=== PATIENT | female | born 1950 | race Caucasian/White ===

== ENCOUNTER → 2016-06-21 | Outpatient (CLI) | payer BC ==
[2016-06-21 11:11] LABS: CH 29.4; CHCM 32.3; HCT 39.7 % (34.0-46.0); HDW 2.35; MCHC 32.8 g/dL (31.0-37.0); MCV 91.4 fL (80.0-100.0); Mean Platelet Volume 8.7; RBC 4.35 m/uL (3.80-5.40); RDW 13.5 % (11.5-15.5); WBC 5.5 k/uL (3.8-10.6)
[2016-06-21 11:15] LABS: Partial Thromboplastin Time 25.1 sec (22.0-30.0); Prothrombin Time 10.6 sec (9.0-12.0)
[2016-06-21 11:21] LABS: ALT 31 U/L (9-52); AST 27 U/L (14-36); Alkaline Phosphatase 121 U/L (38-126); Anion Gap 11 mmol/L; Blood Urea Nitrogen 16 mg/dL (7-17); Calcium 9.7 mg/dL (8.4-10.2); Carbon Dioxide 26 mmol/L (22-30); Chloride 105 mmol/L (98-107); Glucose 88 mg/dL (74-99); Non-African American GFR(MDRD) >60 (>60 ml/min/1.73 sqM); Potassium 4.7 mmol/L (3.5-5.1); Sodium 142 mmol/L (137-145); Total Bilirubin 0.7 mg/dL (0.2-1.3); Total Protein 7.2 g/dL (6.3-8.2)
[2016-06-21 11:25] LABS: Appearance,Urine Cloudy (Clear); Bacteria,Urine Rare /hpf; Bilirubin,Urine Negative (Negative); Glucose,Urine (UA) Negative (Negative); Ketones,Urine Trace (Negative); Leukocyte Esterase,Urine Moderate (Negative); Mucus,Urine Few /hpf; Nitrite,Urine Negative (Negative); Particle Count 9190; Protein,Urine Trace (Negative); RBC,Urine 11 /hpf (0-5); Squamous Epithelial Cell,Urine 7 /hpf (0-4); UA Billing (MACRO vs. MICRO) MICRO; WBC,Urine 2 /hpf (0-5)
== END | disposition home or self-care (01) ==
LOC: LABPAT 10:34
PROVIDERS: ATTEND Orthopaedic Surgery
DX: Z01.812 Encounter for preprocedural laboratory examination (principal); Z01.810 Encounter for preprocedural cardiovascular examination
CPT/HCPCS: 80053; 81001; 85027; 85610; 85730; 86850; 86900; 86901; 87070

== ENCOUNTER 2016-07-02 08:22 | Inpatient (IN) | payer BC ==
[2016-06-25 17:41] VITALS: BMI 35.9
[~2016-07-02 08:22] MED LIST: ACETAMINOPHEN TAB 500 MG TAB PO ONE; DEXAMETHASONE SOD PHOSPHATE 10 MG/ML 1 ML VIAL IV ONE; HYDROmorphone 1 MG/ML 1 ML SYRINGE IVP PRN; MELOXICAM 7.5 MG TAB PO ONE; ONDANSETRON 4 MG/2 ML VIAL IVP ONE; TRANEXAMIC ACID 1,000 MG in SODIUM CHLORIDE 0.9% 100 ML IVPB ONE; ceFAZolin 2 GM in SODIUM CHLORIDE 0.9% 100 ML IVPB ONE
[2016-07-02] MEDS ORDERED: LIDOCAINE 1% 20 ML VIAL (10MG/ML) FOR IV START INTRADERMA ONE (09:08)
[2016-07-02] MEDS: LACTATED RINGERS 1,000 ML IV SCH (09:08)
[2016-07-02] MEDS ORDERED: fentaNYL (PF) 50 MCG/ML 2 ML AMP ONE (10:29)
[2016-07-02] MEDS ORDERED: SODIUM CHLORIDE 0.9% 100 ML BAG ONE (10:29)
[2016-07-02] MEDS ORDERED: MIDAZOLAM 2 MG/2 ML VIAL ONE (10:29)
[2016-07-02] MEDS ORDERED: PROPOFOL 10 MG/ML 20 ML VIAL IV ONE (10:29)
[2016-07-02] MEDS ORDERED: SODIUM CHLORIDE 0.9% IRRIG 1,000 ML BTL IRRIGATION ONE (10:29)
[2016-07-02] MEDS ORDERED: HEPARIN SODIUM,PORCINE 10,000 UNIT/ML 1 ML VIAL ONE (10:29)
[2016-07-02] MEDS ORDERED: PHENYLEPHRINE-0.9% NACL SYG 1 MG/10 ML SYRINGE ONE (10:29)
[2016-07-02] MEDS ORDERED: ceFAZolin 3,000 MG in SODIUM CHLORIDE 0.9% IRRIGATIO 3,000 ML IRRIGATION ONE (10:29)
[2016-07-02] MEDS ORDERED: TRANEXAMIC ACID 1,000 MG/10 ML VIAL ONE (10:29)
[2016-07-02] MEDS: ROPIVACAINE 246.25 MG, EPINEPHrine 0.5 MG, KETOROLAC 30 MG, cloNIDine HCL/PF 80 MCG, WA... MISCELLANE ONE ×10 (11:00→11:50)
[2016-07-02] MEDS ORDERED: LACTATED RINGERS 1,000 ML IV ONE (12:10)
--- NOTE | 2016-07-02 12:21 | XR ---
Fluoroscopy History: RT ANT HIP IN OR RT ANT HIP IN OR WITH DR. CARDONA 1.14 MINS FLUORO 2 PAPER IMAGES
[2016-07-02] MEDS ORDERED: BISACODYL 10 MG SUPP RECTAL PRN (12:29)
[2016-07-02] MEDS ORDERED: DIAZEPAM 5 MG TAB PO PRN (12:29)
[2016-07-02] MEDS ORDERED: MAGNESIUM HYDROXIDE 2,400 MG/10 ML CUP PO PRN (12:29)
[2016-07-02] MEDS ORDERED: HYDROmorphone 1 MG/ML 1 ML SYRINGE IVP PRN ×3 (12:29)
[2016-07-02] MEDS ORDERED: ONDANSETRON 4 MG/2 ML VIAL IVP PRN (12:29)
[2016-07-02] MEDS ORDERED: NALOXONE 0.4 MG/ML 1 ML VIAL IV PRN (12:29)
[2016-07-02] MEDS ORDERED: NA PHOS,M-B/NA PHOS,DI-BA 133 ML ENEMA RECTAL PRN (12:29)
[2016-07-02] MEDS ORDERED: HYDROcodone/APAP 5-325MG 1 EACH TAB PO PRN (12:29)
--- NOTE | 2016-07-02 13:16 | XR ---
EXAMINATION TYPE: XR Hip Limited RT DATE OF EXAM: 07/02/2016 1:12 PM COMPARISON: NONE HISTORY: Postop right hip TECHNIQUE: One view submitted. FINDINGS: There is a prosthetic hip in near anatomic alignment. There is soft tissue edema and emphysema. Surg ical change within the t soft tissues. IMPRESSION: 1. Postoperative change. Appears in near-anatomic alignment.
--- NOTE | 2016-07-02 15:16 | P.OP ---
Date of Procedure: 07/02/16 Preoperative Diagnosis: Severe osteoarthritis right hip Postoperative Diagnosis: Severe osteoarthritis right hip Procedure(s) Performed: Right total hip arthroplasty with a direct anterior approach Implants: Rosales and nephew Polarstem size 4 standard Rosales [employer] Nephew R3, 3 hole acetabular shell, 54 mm [employer]ales [employer]hew reflection 6.5 mm cancellus screw, 20 mm 2 [employer]ales [employer]hew R3, XLPE 20 acetabular liner Rosales [employer] Nephew Oxinium femoral head 36 m, +4 All components were press-fit. The articulation is ceramic on polyethylene. Anesthesia: spinal Surgeon: Gary Finnegan Timber Cruiser #1: Cecy Walsh Timber Cruiser #2: Sharmila Lan Estimated Blood Loss (ml): 300 (135 mL returned with Cell Saver) Pathology: other (Femoral head) Condition: stable Disposition: PACU Indications for Procedure: After failure of conservative treatment we discussed the surgical and nonsurgical treatment options at length. Patient wishes to proceed with a total hip arthroplasty with a direct anterior approach. Complications specific to this procedure were discussed at length, including but not limited to infection, leg length discrepancy, dislocation, and nerve injury. Patient is aware of all these complications and informed consent was obtained Operative Findings: The operative findings are consistent with severe osteoarthritis of the right hip Description of Procedure: Patient was seen and evaluated in the preoperative area, consent was reviewed, and the surgical site was marked with a skin marker. Patient was then brought to the operating room and given prophylactic antibiotics intravenously. 1 g of Tranexamic acid was also given. A spinal anesthetic was administered by the anesthesia department. The patient was then placed on the [place] table with the bony prominences well-padded. The hip area was then prepped and draped in usual sterile fashion. A universal timeout was then performed, which confirmed the patient's name, surgical site, ALLERGIES, and procedure being performed. Next the incision site was located at 1 cm distal and 1 cm lateral to the anterior superior iliac spine. The skin and subcutaneous tissues were sharply incised. Incision was carefully dissected down to the fascia overlying the tensor fascia nichole muscle. This fascia was then incised in line with the incision. Next, using blunt finger dissection, the tensor fascia nihcole muscle was dissected off its investing fascia. The muscle was then carefully retracted laterally with a cobra retractor over the lateral neck of the femur. Next, the circumflex vessels were identified and cauterized using the AquaMantis device. The anterior hip capsule was then exposed. The capsule was then opened and an inverted T fashion. Retention sutures were placed in the inferior arms of the capsule. Cobra retractors were then placed intracapsularly. The proximal femur was then visualized. The femoral neck was then osteotomized appropriate level above the lesser trochanter. Small amount of traction was placed with the [place] table. A small wedge of bone was then removed from the remaining femoral head. Next, using a corkscrew femoral head was easily removed from the acetabulum. On gross visual inspection, the femoral head had complete loss of articular cartilage in multiple periarticular osteophytes. Attention was then turned to the acetabulum. the acetabulum was exposed and any remaining labrum was excised. Sequential reaming of the acetabulum was performed using fluoroscopic guidance. When the appropriate size was reached, a trial was then placed. The position and fit of the trial was checked with fluoroscopy. The trial was then removed. Then, using fluoroscopic guidance, the final implant was impacted at 20 of anteversion and 40 of abduction, and fully seated in the acetabulum. 2 screws were then placed in the acetabulum. Again fluoroscopy was used to check position of the screws. Next, the liner was then impacted, with a 20 elevated liner located in the anterior superior quadrant. Component locking was confirmed. Attention was then directed to the femur. With the aid of the [place] table, the femur was externally rotated to approximately 130, extended, and abducted under the opposite leg. A side hook was then placed under the proximal femur, and the side hook elevator was used to elevate the proximal femur. Retractors were then placed. A capsular release was performed, as well as a release of the conjoined tendon, which afforded excellent visualization of the proximal femur. Next, a box osteotome was used to lateralize the proximal femur. A merchandising assistant was then used to locate the femoral canal. Sequential broaching was then performed with appropriate size which afforded excellent fixation in the proximal femur. A trial was then placed with appropriate head and neck, and the hip was gently reduced with the aid of the [place] table. Fluoroscopy was then used to check position of the components, as well as to ensure equal leg lengths. The hip was then gently dislocated and the trials were then removed. Final implants were then impacted and the hip was again reduced. Final fluoroscopic x-rays confirmed that the components were in anatomic position, as well as equal leg lengths. The hip was also taken through range of motion, and found to be stable. The hip was then copiously irrigated with antibiotic solution with pulsatile lavage. The hip was then irrigated with Irrisept solution. The soft tissues were then injected with a ropivacaine solution, which consisted of 246.25 mg of ropivacaine, 0.5 mg of epinephrine, 30 mg of Toradol, 80 g of clonidine, and 48.45 mL of sterile water, for a total of 100 mL of fluid injected. A second dose of 1 g of Tranexamic acid was also given. the fascia was then closed with 2-0 strata fix suture. The subcutaneous tissue was closed with 3-0 Vicryl. The subcuticular tissue was closed with 3-0 strata fix suture. The skin was then closed with Dermabond tape. The patient was then transferred to the recovery room in stable condition. The assistant guest services manager LOLA Chacon was required due to the complexity of surgery , and the need for skilled surgical aide for positioning, draping, exposure , retraction, and closure of the wound.
[2016-07-02] MEDS: HYDROcodone/APAP 5-325MG 1 EACH TAB PO PRN ×2 (15:22→20:27)
[2016-07-02] MEDS: SODIUM CHLORIDE 0.9% 1,000 ML IV SCH (15:24)
[2016-07-02] MEDS: ceFAZolin 2 GM in SODIUM CHLORIDE 0.9% 100 ML IVPB SCH (18:13)
[2016-07-02 19:38] VITALS: RESP 16
[2016-07-02] MEDS: hydrOXYzine PAMOATE 25 MG CAP PO PRN (20:27)
[2016-07-02] MEDS: SENNOSIDES-DOCUSATE SODIUM 1 EACH TAB PO SCH (20:27)
[2016-07-02] MEDS: ASPIRIN 325 MG TAB PO SCH (20:28)
[2016-07-03] MEDS: HYDROcodone/APAP 5-325MG 1 EACH TAB PO PRN ×4 (01:30→16:29)
[2016-07-03] MEDS: hydrOXYzine PAMOATE 25 MG CAP PO PRN ×5 (01:30→21:54)
[2016-07-03] MEDS: ceFAZolin 2 GM in SODIUM CHLORIDE 0.9% 100 ML IVPB SCH (01:31)
[2016-07-03] MEDS: LACTATED RINGERS 1,000 ML IV SCH (01:34)
[2016-07-03] MEDS: SODIUM CHLORIDE 0.9% 1,000 ML IV SCH ×2 (01:34→17:42)
[2016-07-03] MEDS: DIAZEPAM 5 MG TAB PO PRN ×2 (02:17→22:26)
--- NOTE | 2016-07-03 05:49 | CONS ---
DATE OF CONSULTATION: 07/02/2016 REASON FOR CONSULTATION: Medical management requested by Dr. Finnegan. CONSULTATION: This is a pleasant 65-year-old patient of Dr. Linton undergone a right total hip arthroplasty. Post procedure, some pain is present. No nausea or vomiting. Chronic stable medical conditions include GERD, osteoarthritis, depression. Lying in bed, not in distress. REVIEW OF SYSTEMS: CONSTITUTIONAL: None. HEENT: None. RESPIRATORY: None. CARDIOVASCULAR: None. GASTROINTESTINAL: Heartburn. GENITOURINARY: None. MUSCULOSKELETAL: Pain in different joints. DERMATOLOGICAL: None. HEMATOLOGIC: None. LYMPHATIC: None. PSYCHIATRY: None. NEUROLOGICAL: None. Past history of GERD, osteoarthritis in the left hip, bilateral breast cancer followed by mastectomy, depression. PAST SURGICAL HISTORY: Bariatric surgery, breast surgery, cholecystectomy, tonsillectomy, uterine ablation, bilateral mastectomy in 2007 and breast reduction, right bunionectomy, gastric band surgery and band removed. SOCIAL HISTORY: Patient smokes very occasionally. Alcohol occasionally. He . Family history of hypertension. On examination, pulse 80, respirations 18, blood pressure 159/74, pulse ox 97% on 4 L. GENERAL APPEARANCE: Average build, sitting up, not in distress. EYES: Pupils equal. Conjunctivae normal. HEENT: Oral cavity normal. NECK: JVD not raised. Mass not palpable. RESPIRATORY: Effort normal. Lungs are clear. CARDIOVASCULAR: First and second sounds normal. No edema. ABDOMEN: Soft, nontender. Liver and spleen not palpable. LYMPHATIC: No lymph node palpable in the neck and axillae. PSYCHIATRY: Alert and oriented x3. Mood and affect normal. NEUROLOGICAL: Pupils equal. Cranial nerves grossly intact. Power and sensation grossly intact. INVESTIGATIONS: No blood work from today. ASSESSMENT: 1. Right total hip arthroplasty. 2. Gastroesophageal reflux disease. 3. Primary osteoarthritis of multiple joints. 4. Depression, not otherwise specified. PLAN: Home medications will be resumed. Patient is on aspirin for DVT prophylaxis. Venodyne boots in place. Care was discussed with the patient. Thank you Dr. Finnegan.
[2016-07-03] MEDS: MELOXICAM 7.5 MG TAB PO SCH (07:37)
[2016-07-03] MEDS: ASPIRIN 325 MG TAB PO SCH ×2 (07:37→20:56)
[2016-07-03] MEDS: PANTOPRAZOLE 40 MG TABLET PO SCH (07:37)
[2016-07-03] MEDS: VENLAFAXINE HCL 37.5 MG TAB PO SCH (07:38)
[2016-07-03 08:14] LABS: Basophils % (A) 0 %; CH 29.6; CHCM 31.5; Eosinophils % (A) 1 %; HCT 33.1 % (34.0-46.0); HDW 2.22; HGB 10.5 gm/dL (11.4-16.0); Luc # (Auto) 0.15; Luc % (Auto) 2; Lymphocytes # (A) 1.7 k/uL (1.0-4.8); Lymphocytes % (A) 24 %; MCHC 31.8 g/dL (31.0-37.0); MCV 94.4 fL (80.0-100.0); Mean Platelet Volume 8.9; Monocytes # (A) 0.6 k/uL (0-1.0); Monocytes % (A) 8 %; Neutrophils # (A) 4.6 k/uL (1.3-7.7); Neutrophils % (A) 65 %; RBC 3.51 m/uL (3.80-5.40); RDW 13.5 % (11.5-15.5); WBC (Perox) 6.67
--- NOTE | 2016-07-03 12:49 | PN ---
DATE OF SERVICE: 07/03/2016 PRESENTING COMPLAINT: Right hip surgery. INTERVAL HISTORY: Patient is status post right hip surgery, doing well. Pain is controlled. No nausea, vomiting. ( ) with therapy. Had his breakfast. Review of systems done for constitutional, cardiovascular, GI, pulmonary, musculoskeletal; relevant findings as above. Current medications are reviewed. On examination, temperature 97, pulse 63, respirations 16, blood pressure 119/63, pulse ox 92% on room air. GENERAL APPEARANCE: Sitting up, comfortable. EYES Pupils equal. Conjunctivae normal. NECK: JVD not raised. Mass not palpable. RESPIRATORY: Effort normal. Lungs are clear. CARDIOVASCULAR: First and second sounds normal. No edema. ABDOMEN: Soft, nontender. Liver and spleen not palpable. PSYCHIATRY: Alert and oriented x3. Mood and affect normal. INVESTIGATIONS: Hemoglobin 10.5. ASSESSMENT: 1. Right total hip arthroplasty. 2. Gastroesophageal reflux disease. 3. Primary osteoarthritis of multiple joints. 4. Depression, not otherwise specified. PLAN: Continue current medication and treatment plan. Will follow. Thank you, Dr. Finnegan.
[2016-07-03] MEDS ORDERED: HYDROcodone/APAP 7.5-325MG 1 EACH TAB PO PRN (17:38)
[2016-07-03] MEDS: SENNOSIDES-DOCUSATE SODIUM 1 EACH TAB PO SCH (20:55)
[2016-07-03] MEDS: HYDROcodone/APAP 7.5-325MG 1 EACH TAB PO PRN (21:54)
[2016-07-04] MEDS: HYDROcodone/APAP 7.5-325MG 1 EACH TAB PO PRN ×3 (02:54→13:16)
[2016-07-04] MEDS: hydrOXYzine PAMOATE 25 MG CAP PO PRN ×3 (02:55→13:16)
[2016-07-04 07:42] VITALS: BP 119/60; TEMP 97.9
[2016-07-04] MEDS: ASPIRIN 325 MG TAB PO SCH (08:06)
[2016-07-04] MEDS: VENLAFAXINE HCL 37.5 MG TAB PO SCH (08:07)
[2016-07-04] MEDS: PANTOPRAZOLE 40 MG TABLET PO SCH (08:07)
[2016-07-04] MEDS: MELOXICAM 7.5 MG TAB PO SCH (08:07)
--- NOTE | 2016-07-04 09:02 | P.DS ---
Providers Date of admission: 07/02/16 08:22 Expected date of discharge: 07/04/16 Attending physician: Gary Finnegan Consults: 07/02/16 12:29 Consult Physician Routine Consulting Provider: Karan Espinal Consult Reason/Comments: medical management Do you want consulting provider notified?: Yes Primary care physician: Jeff Davis Hospital Course: This is a 65-year-old female with known history of degenerative arthritis of the right hip. The patient presents for evaluation. After discussion and consideration patient elects to proceed with total hip arthroplasty. The patient is seen preoperatively by Dr. Finnegan and cleared for surgery. Patient is admitted to [facility] on 07/02/2016 for total hip arthroplasty. The procedures performed without complication or sequelae. The patient is doing well postoperatively. Labs and vital signs are stable on day of discharge. On day of discharge patient's hip incision is healing well. There is minimal erythema. There is no drainage noted at this time. There is minimal soft tissue swelling to the hip and thigh. Patient has full foot and ankle motion without difficulty or pain. Patient has been ambulating. Neurovascular status to the right lower extremity is intact. Patient is discharged home in good condition. Please see med rec for accurate list of home medications. Plan - Discharge Summary New Discharge Prescriptions: Aspirin 325 mg PO BID #60 tab Diazepam [Valium] 5 mg PO TID PRN #20 tab PRN Reason: Spasms Hydrocodone/Acetaminophen [Ely 5-325] 1 - 2 each PO Q6HR PRN #90 tab PRN Reason: Pain Sennosides-Docusate Sodium [Senokot-S] 2 tab PO DAILY #60 tablet Discharge Medication List Acetaminophen Tab [Tylenol Tab] 1,000 mg PO Q6HR 02/20/15 [History] Cholecalciferol [Vitamin D3] 5,000 unit PO DAILY 02/20/15 [History] Ibuprofen [Advil] 600 mg PO Q6HR PRN 02/20/15 [History] Lansoprazole [Prevacid] 30 mg PO DAILY 02/20/15 [History] Multivitamins, Thera [Theragran] 1 tab PO DAILY 02/20/15 [History] [place]-3 Acid Ethyl Esters [Lovaza] 2 gm PO DAILY 02/20/15 [History] Venlafaxine HCl [Effexor] 37.5 mg PO DAILY 02/20/15 [History] Ciprofloxacin HCl [Cipro] 500 mg PO Q12HR 06/25/16 [History] Aspirin 325 mg PO BID #60 tab 07/03/16 [Rx] Diazepam [Valium] 5 mg PO TID PRN #20 tab 07/03/16 [Rx] Hydrocodone/Acetaminophen [[place] 5-325] 1 - 2 each PO Q6HR PRN #90 tab 07/03/16 [Rx] Sennosides-Docusate Sodium [Senokot-S] 2 tab PO DAILY #60 tablet 07/03/16 [Rx] Follow up Appointment(s)/Referral(s): Marko Linton MD [Primary Care Provider] - 2 Weeks [facility], [NON-STAFF] - 1 Week Gary Finnegan DO [Doctor of Osteopathic Medicine] - 2 Weeks Patient Instructions/Handouts: Total Hip Replacement (DC) Activity/Diet/Wound Care/Special Instructions: Weightbearing as tolerated with walker Daily dressing changes Keep incision clean and dry Call [facility] with questions or concerns [phone] Discharge Disposition: HOME WITH HOME HEALTH SERVICES
[2016-07-04] MEDS: KETOROLAC 30 MG/ML 1 ML VIAL IVP SCH ×2 (09:40→10:44)
[2016-07-04 10:42] VITALS: PULSE 70
--- NOTE | 2016-07-04 11:48 | PN ---
DATE OF SERVICE: 07/04/2016 PRESENTING COMPLAINT: Right hip surgery. INTERVAL HISTORY: Patient is status post right hip surgery, continues to do well. Work with therapy, he has been out of bed. Tolerating her meals. Review of systems done for constitutional, cardiovascular, GI, pulmonary; relevant findings as above. Current medications are reviewed. On examination, temperature 97.9, pulse 77, respirations 16, blood pressure 119/68, pulse ox 95% on room air. GENERAL APPEARANCE: Sitting up, comfortable. EYES: Pupils equal, conjunctivae normal. NECK: JVD not raised. Mass not palpable. RESPIRATORY: Effort normal. Lungs are clear. CARDIOVASCULAR: First and second sounds normal. No edema. ABDOMEN: Soft, nontender. Liver and spleen not palpable. PSYCHIATRY: Alert and oriented x3, mood and affect normal. INVESTIGATIONS: No blood work from today. ASSESSMENT: 1. Right total knee arthroplasty. 2. Gastroesophageal reflux disease. 3. Primary osteoarthritis of multiple joints. 4. Depression, not otherwise specified. PLAN: Continue current medication and treatment plan. Patient is doing well, if discharged, should follow with the family doctor. Thank you, Dr. Finnegan.
== END 2016-07-04 13:46 | disposition home health service (06) | DRG 470 ==
LOC: 2ORMAIN 08:22 → 3SUR 12:25
PROVIDERS: ADMIT Orthopaedic Surgery; ATTEND Orthopaedic Surgery
PROC: 0SR904A Replacement of Right Hip Joint with Ceramic on Polyethylene Synthetic Substitute, Uncemented, Open Approach (ICD-10-PCS; principal; 2016-07-02 10:00)
DX: M16.11 Unilateral primary osteoarthritis, right hip (principal); F32.9 Major depressive disorder, single episode, unspecified; F17.200 Nicotine dependence, unspecified, uncomplicated; Z79.899 Other long term (current) drug therapy; E03.9 Hypothyroidism, unspecified; Z98.84 Bariatric surgery status; Z85.3 Personal history of malignant neoplasm of breast; K21.9 Gastro-esophageal reflux disease without esophagitis; Z82.49 Family history of ischemic heart disease and other diseases of the circulatory system; Z90.13 Acquired absence of bilateral breasts and nipples
CPT/HCPCS: 73501; 85025; 86850; 86900; 86901; 88300

== ENCOUNTER 2016-09-12 15:21 | Observation (INO) | payer BC ==
--- NOTE | 2016-09-12 15:34 | ED ---
General Adult HPI <Marko Grajeda - Last Filed: 09/12/16 17:24> - General Source: patient, RN notes reviewed, old records reviewed Mode of arrival: ambulatory Limitations: no limitations <Marko Cherry - Last Filed: 09/13/16 10:16> - General Chief complaint: Chest Pain Stated complaint: Chest Pressure Time Seen by Provider: 09/12/16 15:33 - History of Present Illness Initial comments: This is a 65-year-old female ER for evaluation of chest pain, abdominal pain, substernal pressure and burning. Patient has history of multiple surgeries been no history of heart disease no high blood pressure not questionable diabetes assurance of breath, since Friday patient's [place] chest pain consistent for 2 days, not really help with Tums which usually does help, no fevers or cough or congestion or shortness of breath. (Marko Cherry) - Related Data Home Medications Medication Instructions Recorded Confirmed Cholecalciferol [Vitamin D3] 5,000 unit PO DAILY 02/20/15 09/12/16 Lansoprazole [Prevacid] 30 mg PO DAILY 02/20/15 09/12/16 Multivitamins, Thera [Multivitamin 1 tab PO DAILY 02/20/15 09/12/16 (formulary)] [place]-3 Acid Ethyl Esters [Lovaza] 2 gm PO DAILY 02/20/15 09/12/16 Venlafaxine HCl [Effexor] 37.5 mg PO DAILY 02/20/15 09/12/16 D.I.M Supplement Otc 1 tab PO DAILY 09/12/16 09/12/16 L.acidoph,Paracasei, B.lactis 1 cap PO DAILY 09/12/16 09/12/16 [Probiotic] Allergies Allergy/AdvReac Type Severity Reaction Status Date / Time No Known Allergies Allergy Verified 09/12/16 20:09 Review of Systems ROS Other: All systems not noted in ROS Statement are negative. <Marko Grajeda - Last Filed: 09/12/16 17:24> ROS Other: All systems not noted in ROS Statement are negative. <Marko Cherry - Last Filed: 09/13/16 10:16> ROS Statement: Those systems with pertinent positive or pertinent negative responses have been documented in the HPI. Past Medical History Past Medical History: Cancer, GERD/Reflux, Osteoarthritis (OA) Additional Past Medical History / Comment(s): BREAST CA 2007- NO RADIATION OR CHEMO NEEDED, History of Any Multi-Drug Resistant Organisms: None Reported Past Surgical History: Bariatric Surgery, Breast Surgery, Cholecystectomy, Orthopedic Surgery, Tonsillectomy, Uterine Ablation Additional Past Surgical History / Comment(s): GASTRIC BYPASS, EDWINA. MASTECTOMY 2007, BREAST REDUCTION(THAT IS WHEN THEY FOUND BREAST CA) & LOOSE SKIN ON THIGHS SURGERY, RT BUNIONECTOMY . GASTRIC BAND SURGERY- BAND REMOVED right hip replacement Past Anesthesia/Blood Transfusion Reactions: No Reported Reaction Past Psychological History: Depression Smoking Status: Current some day smoker Past Alcohol Use History: Occasional Past Drug Use History: None Reported - Past Family History Mother Additional Family Medical History / Comment(s): @ AGE 51-SMOKER- CARTON A WEEK, ENLARGED HEART- FROM PNEUMONIA Father Family Medical History: Cancer, Hypertension Additional Family Medical History / Comment(s): SKIN CANCER Brother(s) Family Medical History: Diabetes Mellitus Additional Family Medical History / Comment(s): WEIGHS OVER 400LBS <Marko Cherry - Last Filed: 09/13/16 10:16> General Exam Limitations: no limitations General appearance: alert, in no apparent distress Head exam: Present: atraumatic, normocephalic, normal inspection Eye exam: Present: normal appearance, PERRL, EOMI. Absent: scleral icterus, conjunctival injection, periorbital swelling ENT exam: Present: normal exam, mucous membranes moist Neck exam: Present: normal inspection. Absent: tenderness, meningismus, lymphadenopathy Respiratory exam: Present: normal lung sounds bilaterally. Absent: respiratory distress, wheezes, rales, rhonchi, stridor Cardiovascular Exam: Present: regular rate, normal rhythm, normal heart sounds. Absent: systolic murmur, diastolic murmur, rubs, gallop, clicks GI/Abdominal exam: Present: soft, normal bowel sounds. Absent: distended, tenderness, guarding, rebound, rigid Extremities exam: Present: normal inspection, full ROM, normal capillary refill. Absent: tenderness, pedal edema, joint swelling, calf tenderness Back exam: Present: normal inspection Neurological exam: Present: alert, oriented X3, CN II-XII intact Psychiatric exam: Present: normal affect, normal mood Skin exam: Present: warm, dry, intact, normal color. Absent: rash <Marko Cherry - Last Filed: 09/13/16 10:16> Course <Marko Grajeda - Last Filed: 09/12/16 17:24> <Marko Cherry - Last Filed: 09/13/16 10:16> Vital Signs 09/12/16 09/12/16 09/12/16 15:23 15:45 17:06 Temperature 98.1 F 98.0 F Pulse Rate 89 84 64 Respiratory 18 16 16 Rate Blood Pressure 127/79 133/62 145/82 O2 Sat by Pulse 96 98 100 Oximetry 09/12/16 09/12/16 17:32 18:07 Temperature 97.9 F Pulse Rate 63 70 Respiratory 16 16 Rate Blood Pressure 145/82 149/87 O2 Sat by Pulse 100 100 Oximetry - Reevaluation(s) Reevaluation #1: 09/12/16 15:40 Patient does have improvement with GI cocktail, Pepcid (Marko Cherry) EKG Findings - EKG Comments: EKG Findings:: EKG shows normal sinus rhythm at 75, WI 160, QRS 80, QTC 422 <Marko Cherry - Last Filed: 09/13/16 10:16> Medical Decision Making - Lab Data Result diagrams: 09/12/16 16:00 09/12/16 16:00 <Marko Grajeda - Last Filed: 09/12/16 17:24> - Lab Data Result diagrams: 09/12/16 16:00 09/12/16 16:00 <Marko Cherry - Last Filed: 09/13/16 10:16> - Medical Decision Making CT of the chest showed no pulmonary embolism. Patient continued to have chest pain in the emergency department and when I interviewed her she states the pain is been coming and g chest pain is a pressure sensation and is not at all similar to anything she's had the past. Patient states this does not feel like any heartburn he has ever had in the past. Spoke with Dr. Toure I admitted the patient. He agreed to the admission I consult cardiology and I started the patient on heparin because of the intermittent nature of the chest pain. I wrote admitting orders. Patient received nitroglycerin and aspirin in the emergency department. I continue that on the floor with the heparin as well. (Marko Grajeda) - Lab Data Lab Results 09/12/16 09/12/16 09/12/16 Range/Units 16:00 16:00 16:00 WBC 5.7 (3.8-10.6) k/uL RBC 3.81 (3.80-5.40) m/uL Hgb 11.0 L (11.4-16.0) gm/dL Hct 34.5 (34.0-46.0) % MCV 90.4 (80.0-100.0) fL MCH 28.8 (25.0-35.0) pg MCHC 31.9 (31.0-37.0) g/dL RDW 14.0 (11.5-15.5) % Plt Count 236 (150-450) k/uL Neutrophils % 57 % Lymphocytes % 30 % Monocytes % 9 % Eosinophils % 2 % Basophils % 1 % Neutrophils # 3.2 (1.3-7.7) k/uL Lymphocytes # 1.7 (1.0-4.8) k/uL Monocytes # 0.5 (0-1.0) k/uL Eosinophils # 0.1 (0-0.7) k/uL Basophils # 0.0 (0-0.2) k/uL PT (9.0-12.0) sec INR (<1.2) APTT (22.0-30.0) sec D-Dimer (<0.60) mg/L FEU Sodium 141 (137-145) mmol/L Potassium 4.4 (3.5-5.1) mmol/L Chloride 107 (98-107) mmol/L Carbon Dioxide 25 (22-30) mmol/L Anion Gap 9 mmol/L BUN 19 H (7-17) mg/dL Creatinine 0.66 (0.52-1.04) mg/dL Est GFR (MDRD) Af Amer >60 (>60 ml/min/1.73 sqM) Est GFR (MDRD) Non-Af >60 (>60 ml/min/1.73 sqM) Glucose 105 H (74-99) mg/dL Calcium 9.0 (8.4-10.2) mg/dL Magnesium 2.2 (1.6-2.3) mg/dL Total Bilirubin 0.2 (0.2-1.3) mg/dL AST 28 (14-36) U/L ALT 35 (9-52) U/L Alkaline Phosphatase 134 H (38-126) U/L Total Creatine Kinase 51 (30-135) U/L CK-MB (CK-2) 0.8 (0.0-2.4) ng/mL CK-MB (CK-2) Rel Index 1.6 Troponin I <0.012 (0.000-0.034) ng/mL Total Protein 6.2 L (6.3-8.2) g/dL Albumin 3.8 (3.5-5.0) g/dL Lipase 66 (23-300) U/L 09/12/16 Range/Units 16:00 WBC (3.8-10.6) k/uL RBC (3.80-5.40) m/uL Hgb (11.4-16.0) gm/dL Hct (34.0-46.0) % MCV (80.0-100.0) fL MCH (25.0-35.0) pg MCHC (31.0-37.0) g/dL RDW (11.5-15.5) % Plt Count (150-450) k/uL Neutrophils % % Lymphocytes % % Monocytes % % Eosinophils % % Basophils % % Neutrophils # (1.3-7.7) k/uL Lymphocytes # (1.0-4.8) k/uL Monocytes # (0-1.0) k/uL Eosinophils # (0-0.7) k/uL Basophils # (0-0.2) k/uL PT 10.0 (9.0-12.0) sec INR 1.0 (<1.2) APTT 23.3 (22.0-30.0) sec D-Dimer 1.40 H (<0.60) mg/L FEU Sodium (137-145) mmol/L Potassium (3.5-5.1) mmol/L Chloride (98-107) mmol/L Carbon Dioxide (22-30) mmol/L Anion Gap mmol/L BUN (7-17) mg/dL Creatinine (0.52-1.04) mg/dL Est GFR (MDRD) Af Amer (>60 ml/min/1.73 sqM) Est GFR (MDRD) Non-Af (>60 ml/min/1.73 sqM) Glucose (74-99) mg/dL Calcium (8.4-10.2) mg/dL Magnesium (1.6-2.3) mg/dL Total Bilirubin (0.2-1.3) mg/dL AST (14-36) U/L ALT (9-52) U/L Alkaline Phosphatase (38-126) U/L Total Creatine Kinase (30-135) U/L CK-MB (CK-2) (0.0-2.4) ng/mL CK-MB (CK-2) Rel Index Troponin I (0.000-0.034) ng/mL Total Protein (6.3-8.2) g/dL Albumin (3.5-5.0) g/dL Lipase (23-300) U/L Critical Care Time Critical Care Time: Yes Total Critical Care Time: 35 <Marko Grajeda - Last Filed: 09/12/16 17:24> Disposition Time of Disposition: 17:26 <Marko Grajeda - Last Filed: 09/12/16 17:24> <Marko Cherry - Last Filed: 09/13/16 10:16> Clinical Impression: Unstable angina pectoris Disposition: ADMITTED IP TO THIS HOSP
[2016-09-12] MEDS ORDERED: FAMOTIDINE 20 MG/2 ML VIAL IV STA (15:41)
[2016-09-12] MEDS ORDERED: MAG HYDROX/AL HYDROX/SIMETH 30 ML, HYOSCYAMINE ELIXIR 10 ML, CIMETIDINE HCL 300 MG PO STA ×3 (15:41)
[2016-09-12 16:14] LABS: Basophils % (A) 1 %; CH 28.8; Eosinophils # (A) 0.1 k/uL (0-0.7); Eosinophils % (A) 2 %; HCT 34.5 % (34.0-46.0); HDW 2.52; Luc # (Auto) 0.14; Luc % (Auto) 3; Lymphocytes # (A) 1.7 k/uL (1.0-4.8); Lymphocytes % (A) 30 %; MCH 28.8 pg (25.0-35.0); MCHC 31.9 g/dL (31.0-37.0); MCV 90.4 fL (80.0-100.0); Mean Platelet Volume 9.6; Monocytes # (A) 0.5 k/uL (0-1.0); Monocytes % (A) 9 %; Neutrophils # (A) 3.2 k/uL (1.3-7.7); Neutrophils % (A) 57 %; RBC 3.81 m/uL (3.80-5.40); WBC 5.7 k/uL (3.8-10.6); WBC (Perox) 5.86
[2016-09-12 16:22] LABS: ALT 35 U/L (9-52); AST 28 U/L (14-36); Alkaline Phosphatase 134 U/L (38-126); Anion Gap 9 mmol/L; Blood Urea Nitrogen 19 mg/dL (7-17); Carbon Dioxide 25 mmol/L (22-30); Chloride 107 mmol/L (98-107); Glucose 105 mg/dL (74-99); Magnesium 2.2 mg/dL (1.6-2.3); Non-African American GFR(MDRD) >60 (>60 ml/min/1.73 sqM); Potassium 4.4 mmol/L (3.5-5.1); Sodium 141 mmol/L (137-145); Total Bilirubin 0.2 mg/dL (0.2-1.3); Total Protein 6.2 g/dL (6.3-8.2)
[2016-09-12 16:26] LABS: Partial Thromboplastin Time 23.3 sec (22.0-30.0)
[2016-09-12] MEDS ORDERED: RX INFO: IV CONTRAST WAS GIVEN 1 EACH MISC MISCELLANE PRN (16:29)
[2016-09-12 16:35] LABS: Creatine Kinase 51 U/L (30-135)
[2016-09-12 16:48] LABS: Creatine Kinase MB 0.8 ng/mL (0.0-2.4); Troponin I <0.012 ng/mL (0.000-0.034)
--- NOTE | 2016-09-12 17:15 | CT ---
EXAMINATION TYPE: CT angio chest DATE OF EXAM: 09/12/2016 COMPARISON: NONE HISTORY: Chest pressure. CT DLP: 493.70 mGycm Automated exposure control for dose reduction was used. CONTRAST: CTA scan of the thorax is performed with IV Contrast, patient injected with 82 mL of Omnipaque 350, p ulmonary embolism protocol. MIP images are created and reviewed. 3D reconstructed images are create d on an independent workstation and reviewed. FINDINGS: LUNGS: The lungs are remarkable for some areas of scattered groundglass opacity especially in the lef t upper lobe, there is no concerning parenchymal mass or nodule identified. There is no pleural eff usion or pneumothorax seen. The tracheobronchial tree is patent. AORTA: No additional significant abnormality is seen. MEDIASTINUM: There is satisfactory enhancement of the pulmonary artery and its branches, there is no CT evidence for pulmonary embolism. There are no greater than 1 cm hilar or mediastinal lymph nodes. No pericardial effusion is seen. OTHER: No additional significant abnormality is seen. Postop change noted at the gastroesophageal junction. Distal esophagus is somewhat prominent, thicken ed likely due to postop change. Patient is status post gastric bypass surgery and cholecystectomy. So me calcifications of the posterior aspect of the right lobe of the liver show nonaggressive appearanc e and are thought likely to be benign, possibly postsurgical. Postop change noted to the bilateral br easts. IMPRESSION: THERE MAY BE SOME UNDERLYING PNEUMONITIS, ATELECTATIC CHANGE IN THE LEFT UPPER AND RIGHT MIDDLE LOBE, CORRELATE FOR REACTIVE AIRWAYS DISEASE. NO PULMONARY EMBOLISM. POSTOP CHANGES.
[2016-09-12] MEDS ORDERED: NITROGLYCERIN SL TABS 0.4 MG TAB SUBLINGUAL PRN (17:26)
[2016-09-12] MEDS ORDERED: ASPIRIN 81 MG CHEW PO STA (17:26)
[2016-09-12] MEDS ORDERED: HEPARIN SODIUM,PORCINE 5,000 UNIT/ML 1 ML VIAL IV ONE (17:28)
[2016-09-12] MEDS ORDERED: HEPARIN SODIUM,PORCINE/D5W PMX 25,000 UNIT in DEXTROSE/WATER 1 500ML.BAG IV SCH (17:30)
[2016-09-12] MEDS: NITROGLYCERIN OINT 1 INCH/GM PACKET TOPICAL SCH ×2 (18:12→23:27)
[2016-09-12 20:34] VITALS: BMI 36.3
[2016-09-12] MEDS ORDERED: ONDANSETRON 4 MG/2 ML VIAL IVP PRN (20:49)
[2016-09-12] MEDS ORDERED: MORPHINE SULFATE 2 MG/ML SYRINGE IVP PRN (20:49)
[2016-09-12 22:52] LABS: Creatine Kinase 49 U/L (30-135)
[2016-09-12 23:05] LABS: Creatine Kinase MB 0.7 ng/mL (0.0-2.4); Troponin I <0.012 ng/mL (0.000-0.034)
[2016-09-12] MEDS: ZOLPIDEM 5 MG TAB PO PRN (23:27)
[2016-09-13 04:34] LABS: Creatine Kinase 46 U/L (30-135)
[2016-09-13] MEDS: NITROGLYCERIN OINT 1 INCH/GM PACKET TOPICAL SCH ×3 (04:38→21:28)
[2016-09-13 04:47] LABS: Creatine Kinase MB 0.7 ng/mL (0.0-2.4); Troponin I <0.012 ng/mL (0.000-0.034)
[2016-09-13 05:34] LABS: Cholesterol 126 mg/dL (<200); HDL Cholesterol 55 mg/dL (40-60)
[2016-09-13] MEDS ORDERED: NON-FORMULARY DRUG (Omega-3 Acid Ethyl Esters [Lovaza] 2 GM) PO SCH (09:00)
[2016-09-13] MEDS ORDERED: [UNRECOGNIZED DRUG - OTHER] PO SCH (09:00)
[2016-09-13] MEDS ORDERED: DOBUTamine DRIP for NUC MED 500 MG in DEXTROSE/WATER 1 250ML.BAG IV ONE (09:58)
--- NOTE | 2016-09-13 10:05 | P.CRDCN ---
History of Present Illness Consult date: 09/13/16 History of present illness: This is a 65-year-old female with history of three-vessel gastric bypass surgery and history of pains in the epigastrium and lower sternal area related to previous surgeries and esophagitis. Patient has been taking antacids and also Prevacid with relief of symptoms in the past. For the last 4 days patient has been having this constant discomfort like a tight feeling which was not relieved with usual measures. Patient called her primary care doctor who advised her to go to the emergency room. She was treated with a GI cocktail and IV Prevacid with improvement of some of the symptoms. Her EKG did not reveal any acute changes. Her cardiac enzymes studies are negative. Patient doesn't have any hyperacute pressure, diabetes or hypercholesterolemia. Smokes occasionally. No significant family history. Her symptoms appear to be atypical and most probably related to gastrointestinal issues. We'll going to schedule her for a dobutamine echocardiogram. If that is negative patient could be discharged home. Review of Systems As per the chart Past Medical History Past Medical History: Cancer, GERD/Reflux, Osteoarthritis (OA) Additional Past Medical History / Comment(s): BREAST CA 2007- NO RADIATION OR CHEMO NEEDED, Double mastectomy History of Any Multi-Drug Resistant Organisms: None Reported Past Surgical History: Bariatric Surgery, Breast Surgery, Cholecystectomy, Orthopedic Surgery, Tonsillectomy, Uterine Ablation Additional Past Surgical History / Comment(s): GASTRIC BYPASS, EDWINA. MASTECTOMY 2007, BREAST REDUCTION(THAT IS WHEN THEY FOUND BREAST CA) & LOOSE SKIN ON THIGHS SURGERY, RT BUNIONECTOMY . GASTRIC BAND SURGERY- BAND REMOVED right hip replacement. Jacqueline richards Past Anesthesia/Blood Transfusion Reactions: No Reported Reaction Smoking Status: Current some day smoker - Past Family History Sister(s) Additional Family Medical History / Comment(s): Depression, bipolar Mother Additional Family Medical History / Comment(s): Enlarged heart Father Family Medical History: Cancer, Diabetes Mellitus, Hypertension Additional Family Medical History / Comment(s): SKIN CANCER, neuropathy Brother(s) Family Medical History: Diabetes Mellitus Additional Family Medical History / Comment(s): WEIGHS OVER 400LBS Medications and Allergies Home Medications Medication Instructions Recorded Confirmed Type Cholecalciferol [Vitamin D3] 5,000 unit PO DAILY 02/20/15 09/12/16 History Lansoprazole [Prevacid] 30 mg PO DAILY 02/20/15 09/12/16 History Multivitamins, Thera [Multivitamin 1 tab PO DAILY 02/20/15 09/12/16 History (formulary)] Wright-3 Acid Ethyl Esters [Lovaza] 2 gm PO DAILY 02/20/15 09/12/16 History Venlafaxine HCl [Effexor] 37.5 mg PO DAILY 02/20/15 09/12/16 History D.I.M Supplement Otc 1 tab PO DAILY 09/12/16 09/12/16 History L.acidoph,Paracasei, B.lactis 1 cap PO DAILY 09/12/16 09/12/16 History [Probiotic] Allergies Allergy/AdvReac Type Severity Reaction Status Date / Time No Known Allergies Allergy Verified 09/12/16 20:09 Physical Exam Vitals: Vital Signs Temp Pulse Pulse Resp BP BP Pulse Ox 09/13/16 09:12 95 09/13/16 07:55 97.5 F L 65 16 158/69 95 09/13/16 04:00 16 09/13/16 03:26 97.9 F 60 16 114/52 96 09/13/16 00:00 18 09/12/16 23:48 98.1 F 69 18 138/66 93 L 09/12/16 20:00 16 09/12/16 19:07 98.0 F 69 16 142/88 100 09/12/16 18:07 97.9 F 70 16 149/87 100 09/12/16 17:32 63 16 145/82 100 09/12/16 17:06 98.0 F 64 16 145/82 100 09/12/16 15:45 84 16 133/62 98 09/12/16 15:23 98.1 F 89 18 127/79 96 Intake and Output 09/12/16 09/13/16 09/13/16 22:59 06:59 14:59 Intake Total 161.595 Balance 161.595 Intake: Intake, IV Titration 161.595 Amount Heparin Sodium,Porcine/ 161.595 D5w Pmx 25,000 unit In Dextrose/Water 1 500ml. bag @ 10 UNITS/KG/HR 19. 95 mls/hr IV .Q24H [facility] Rx #:[id number] Other: # Voids 1 1 Weight 102.1 kg GENERAL EXAM: Patient is alert and oriented and doesn't appear to be in any acute distress HEENT: Normocephalic. Normal reaction of pupils, equal size, normal range of extraocular motion. No erythema or exudates in the throat. NECK: No masses, no nuchal rigidity. CHEST: No chest wall deformity. LUNGS: Equal air entry with no crackles or wheeze. HEART: S1 and S2 normal with no audible mumurs or gallops. Regular rhythm, femorals equal on both sides.. ABDOMEN: No hepatosplenomegaly, normal bowel sounds, no guarding or rigidity. SKIN: No rashes CENTRAL NERVOUS SYSTEM: No focal deficits. EXTREMITIES: No cyanosis, clubbing or edema. Results 09/12/16 16:00 09/12/16 16:00 Cardiac Enzymes 09/12/16 09/12/16 09/12/16 Range/Units 16:00 16:00 22:11 AST 28 (14-36) U/L CK-MB (CK-2) 0.8 0.7 (0.0-2.4) ng/mL Troponin I <0.012 <0.012 (0.000-0.034) ng/mL 09/13/16 Range/Units 03:54 AST (14-36) U/L CK-MB (CK-2) 0.7 (0.0-2.4) ng/mL Troponin I <0.012 (0.000-0.034) ng/mL Coagulation 09/12/16 09/13/16 09/13/16 Range/Units 16:00 00:22 08:51 PT 10.0 (9.0-12.0) sec APTT 23.3 38.1 H 57.6 H (22.0-30.0) sec Lipids 09/13/16 Range/Units 03:54 Triglycerides 57 (<150) mg/dL Cholesterol 126 (<200) mg/dL HDL Cholesterol 55 (40-60) mg/dL CBC 09/12/16 Range/Units 16:00 WBC 5.7 (3.8-10.6) k/uL RBC 3.81 (3.80-5.40) m/uL Hgb 11.0 L (11.4-16.0) gm/dL Hct 34.5 (34.0-46.0) % Plt Count 236 (150-450) k/uL Comprehensive Metabolic Panel 07/27/17 Range/Units 16:00 Sodium 141 (137-145) mmol/L Potassium 4.4 (3.5-5.1) mmol/L Chloride 107 (98-107) mmol/L Carbon Dioxide 25 (22-30) mmol/L BUN 19 H (7-17) mg/dL Creatinine 0.66 (0.52-1.04) mg/dL Glucose 105 H (74-99) mg/dL Calcium 9.0 (8.4-10.2) mg/dL AST 28 (14-36) U/L ALT 35 (9-52) U/L Alkaline Phosphatase 134 H (38-126) U/L Total Protein 6.2 L (6.3-8.2) g/dL Albumin 3.8 (3.5-5.0) g/dL Current Medications Generic Name Dose Route Start Last Admin Trade Name Freq PRN Reason Stop Dose Admin Aspirin 325 mg 09/13/16 09:00 Aspirin PO DAILY [facility] Cholecalciferol 5,000 unit 09/13/16 09:00 Vitamin D3 PO DAILY [facility] Heparin Sodium/Dextrose 25,000 500 mls @ 19.95 mls/hr 09/12/16 17:30 02:04 unit/ IV Solution IV 13 units/kg/hr .Q24H [facility] 25.94 mls/hr Protocol Titration 10 UNITS/KG/HR Lactobacillus Acidoph/Bulgaricus 1 each 09/13/16 09:00 Lactinex PO DAILY [facility] Miscellaneous Information 1 each 09/12/16 16:29 09/12/16 17:50 Rx Info: Iv Contrast Was Given MISCELLANE 09/14/16 16:29 1 each DAILY PRN Administration Per Protocol Morphine Sulfate 2 mg 09/12/16 20:49 09/13/16 03:03 Morphine Sulfate (Inj) IVP 2 mg Q4H PRN Administration Pain/Discomfort Multivitamins 1 each 09/13/16 12:00 Theragran PO DAILY@1200 [facility] Nitroglycerin 1 inch 09/12/16 18:00 09/13/16 04:38 Nitro-Bid Oint TOPICAL Not Given Q6HR [facility] Nitroglycerin 0.4 mg 09/12/16 17:26 Nitrostat SUBLINGUAL Q5M PRN Chest Pain Ondansetron HCl 4 mg 09/12/16 20:49 Zofran IVP Q6HR PRN Nausea And Vomiting Pantoprazole Sodium 40 mg 09/13/16 07:30 Protonix PO AC-BRKFST [facility] Venlafaxine HCl 37.5 mg 09/13/16 09:00 Effexor PO DAILY [facility] Zolpidem Tartrate 5 mg 09/12/16 23:18 09/12/16 23:27 Ambien PO 5 mg HS PRN Administration Insomnia Intake and Output 09/12/16 09/13/16 09/13/16 22:59 06:59 14:59 Intake Total 161.595 Balance 161.595 Intake: Intake, IV Titration 161.595 Amount Heparin Sodium,Porcine/ 161.595 D5w Pmx 25,000 unit In Dextrose/Water 1 500ml. bag @ 10 UNITS/KG/HR 19. 95 mls/hr IV .Q24H [facility] Rx #:[id number] Other: # Voids 1 1 Weight 102.1 kg 09/12/16 16:00 09/12/16 16:00 EKG Interpretations (text) Sinus rhythm Assessment and Plan (1) Chest pain Status: Acute Plan: Her chest pains appear to be atypical. She is being scheduled for a dobutamine echo ,as patient cannot walk because of previous hip problems. If the test is negative patient could be discharged home.
--- NOTE | 2016-09-13 10:27 | HP ---
DATE OF SERVICE: 09/12/2016 The chief complaints are epigastric and chest pain. HISTORY OF PRESENT ILLNESS: This is a 65-year-old woman with a past medical history of multiple medical problems including GERD, history of bariatric surgery, history of bilateral mastectomy, history of depression, history of nicotine dependence, being followed by Dr. Linton in the outpatient setting, was complaining of epigastric discomfort since last Friday. The patient felt discomfort as well as a bubble and which is waxing and waning for the last several days without any relation with any accession, not really helped with the TUMS and patient came to [facility] and admitted for further evaluation and treatment. There is no history of any fever, rigors or chills. There no history of headache, loss of consciousness, radiation, palpitation or shortness of breath at this time. Past medical history of GERD, DJD, bariatric surgery, history of depression. Medications prior to admission include: 1. Vitamin supplements. 2. Effexor. 3. Lovaza 2 gm daily. 4. Prevacid 30 mg daily. 5. Probiotic 1 p.o. daily. 6. Vitamin D3 five thousand daily. Allergies are none. FAMILY HISTORY: History of cancer, hypertension in the family. SOCIAL HISTORY: History of smoking, occasional alcohol intake. REVIEW OF SYSTEMS: ENT: No diminished hearing or diminished vision. CARDIOVASCULAR SYSTEM: As mentioned earlier. RESPIRATORY SYSTEM: As mentioned earlier. GI: As mentioned earlier. : No dysuria. NERVOUS SYSTEM: No numbness or weakness. ALLERGY/IMMUNOLOGY: No asthma or hayfever. MUSCULOSKELETAL: As mentioned earlier. HEMATOLOGY/ONCOLOGY: No history of anemia. ENDOCRINE: No history of diabetes or hypothyroid. CONSTITUTIONAL: As mentioned earlier. DERMATOLOGY: Negative. PSYCHIATRY: As mentioned earlier. PHYSICAL EXAM: Patient is alert and oriented x3. Blood pressure is 140/82, respirations 16, temperature is 98 degrees, pulse ox 100% on 2 L. HEENT: Conjunctivae normal, oral mucosa moist. NECK: No jugular venous distension. No carotid bruit, no lymph node enlargement. CARDIOVASCULAR SYSTEM: S1, S2, muffled, no S3, no S4. RESPIRATORY: Breath sounds diminished at the bases, no rhonchi, no crackles. ABDOMEN: Soft, nontender, no mass palpable, no hepatitis or organomegaly. LEGS: No edema, no swelling. NERVOUS SYSTEM: Higher functions as mentioned earlier, moves all 4 limbs. LYMPHATICS: No lymph node enlargement in the neck or axillae. SKIN: No ulcer, rash, bleeding. LABS: Hemoglobin is 11, d-dimer is 1.4. Other diagnostic evaluation including chest CT shows underlying atelectasis in the left upper and middle lobe. Otherwise, no evidence of pulmonary embolism, postoperative changes. EKG shows ( ) in the anterior leads. ASSESSMENT: 1. Chest pain, possible unstable angina. 2. History of gastroesophageal reflux disease. 3. History of bariatric surgery. 4. History of cholecystectomy. 5. Bilateral mastectomy for breast cancer. 6. Obesity with body mass index of 36.6. 7. History of depression. 8. Nicotine dependence. RECOMMENDATION: This 65-year-old woman presented with multiple complex medical issues. Will monitor the patient closely. Continue with the current medications and symptomatic treatment. Otherwise, at this time I recommend resume the home medications, proton pump inhibitors, antiplatelet agents and p.o. after midnight and Cardiology consultation and possible stress test. Otherwise, guarded prognosis with multiple complex medical issues and further recommendations to follow. Discussed with patient. PLEASE NOTE: The patient has been also followed by Aren Kirkpatrick for bariatric surgery revision and the complicated procedures. SARINA
[2016-09-13] MEDS ORDERED: REGADENOSON 0.4 MG/5 ML SYRINGE IV ONE (10:58)
[2016-09-13] MEDS ORDERED: AMINOPHYLLINE 500 MG/20 ML VIAL IV PRN (10:58)
--- NOTE | 2016-09-13 12:33 | P.STRESS ---
- Stress Test Note Stress Test Results/Findings: Exam Performed: NM stress lexiscan cardiolite Exam Date: 09/13/16 Reason for Exam: CP Height: 5 ft 6 in Weight: 102.1 kg Protocol: Lexiscan Stage: N/A Duration of Exercise: N/A Resting Heart Rate: 67 Resting Blood Pressure: 136/80 Maximum Achieved Heart Rate: 99 Maximum Achieved Blood Pressure: 138/73 85% PMHR: N/A 100% PMHR: N/A METS: N/A Technologist Comment: Stress Test Results/Findings: Resting EKG shows normal sinus rhythm with a normal NM interval and QRS duration and normal S Nick no ST segment depression suggestive of ischemia was noted during Lexiscan injection no dysrhythmias are noted. The results of the nuclear study will follow.
[2016-09-13] MEDS: MULTIVITAMINS, THERA 1 EACH TAB PO SCH (12:44)
[2016-09-13] MEDS: PANTOPRAZOLE 40 MG TABLET PO SCH (12:44)
[2016-09-13] MEDS: CHOLECALCIFEROL 1,000 UNIT TAB PO SCH (12:44)
[2016-09-13] MEDS: ASPIRIN 325 MG TAB PO SCH (12:44)
[2016-09-13] MEDS: VENLAFAXINE HCL 37.5 MG TAB PO SCH (12:44)
[2016-09-13] MEDS: LACTOBACILLUS ACIDOPH & BULGAR 1 EACH PACKET PO SCH (12:45)
--- NOTE | 2016-09-13 13:04 | NM ---
EXAMINATION TYPE: NM stress lexiscan cardiolite DATE OF EXAM: 09/13/2016 COMPARISON: NONE HISTORY: 65-year-old female with chest pain TECHNIQUE: After the intravenous administration of 10.56 mCi Tc 99m Sestamibi - Cardiolite resting S PECT images acquired 45 minutes post injection. The patient received 0.4mg Lexiscan, 27.1 mCi Tc 99m Sestamibi - Stress images obtained [address] injection FINDINGS: Review of stress and rest SPECT images demonstrates a moderate-sized apical defect. Areas of attenuation artifact are present as some regions of decreased perfusion are more pronounced on the rest images. There is fixed decreased perfusion along the inferolateral mid to basal wall. The re may be a small area of reversibility along the basal inferolateral wall. Gated analysis shows estimated left ventricular ejection fraction of 59 %. TID is calculated at 0.94, within normal limits. IMPRESSION: 1. Correlate for prior moderate sized apical infarct. 2. Findings suggest additional small to moderate-sized infarct along the inferolateral mid to basal w all. Possible small area of inducible irena-infarct ischemia here. 3. LVEF of 59%.
--- NOTE | 2016-09-13 14:07 | EST ---
Stress Test Results/Findings: Exam Performed: NM stress lexiscan cardiolite Exam Date: 09/13/16 Reason for Exam: CP Height: 5 ft 6 in Weight: 102.1 kg Protocol: Lexiscan Stage: N/A Duration of Exercise: N/A Resting Heart Rate: 67 Resting Blood Pressure: 136/80 Maximum Achieved Heart Rate: 99 Maximum Achieved Blood Pressure: 138/73 85% PMHR: N/A 100% PMHR: N/A METS: N/A Technologist Comment: Stress Test Results/Findings: Resting EKG shows normal sinus rhythm with a normal KS interval and QRS duration and normal S Nick no ST segment depression suggestive of ischemia was noted during Lexiscan injection no dysrhythmias are noted. The results of the nuclear study will follow. SARINA
[2016-09-13] MEDS: ZOLPIDEM 5 MG TAB PO PRN (23:33)
[2016-09-14] MEDS: NITROGLYCERIN OINT 1 INCH/GM PACKET TOPICAL SCH ×3 (00:51→15:06)
--- NOTE | 2016-09-14 07:48 | PN ---
DATE OF SERVICE: 09/13/2016 This 65-year-old woman who was admitted with chest pain, had a Lexiscan and stress test, which is thought to be indeterminate. The patient also had moderate size apical infarct and additional small to moderate size infarct along the inferolateral mid to basal wall, possibly a small area of inducible irena-infarct ischemic area was also noted. No chest pain or palpitation. No fever. On exam, alert and oriented x3. Pulse is 65. Blood pressure is 158/69, respirations 16, temperature 97.5, pulse ox 95% on room air. HEENT: Conjunctivae normal. NECK: No jugular venous distention. CARDIOVASCULAR: S1 and S2 muffled. RESPIRATORY: Breath sounds diminished at the bases. No rhonchi, no crackles. ABDOMEN: Soft. Nontender. LEGS: No edema, no swelling. NERVOUS SYSTEM: No focal deficits. LABS: D-dimer is 1.40. Other labs are noted. ASSESSMENT: 1. Chest pain, possible unstable angina, status post stress test, which is indeterminate. 2. History of gastroesophageal reflux disease. 3. History of bariatric surgery. 4. History of cholecystectomy. 5. History of mastectomy and breast cancer. 6. Obesity with body mass index of 36.6. 7. History of depression. 8. History of nicotine dependence. RECOMMENDATIONS AND DISCUSSION: Recommend to continue current medications. Continue symptomatic treatment. Otherwise, cardiology evaluation to evaluate the stress test with possible cardiac cath. Guarded prognosis because of multiple complex medical issues and further recommendations to follow. TASNEEMD
[2016-09-14] MEDS ORDERED: ALPRAZolam 0.5 MG TAB PO PRN (09:05)
[2016-09-14] MEDS ORDERED: ASPIRIN 325 MG TAB PO STA (09:05)
[2016-09-14] MEDS ORDERED: SODIUM CHLORIDE 0.9% 1,000 ML in EMPTY BAG 1 BAG IV ONE (09:05)
[2016-09-14] MEDS ORDERED: ALPRAZolam 0.25 MG TAB PO PRN (09:05)
[2016-09-14] MEDS ORDERED: ATORVASTATIN 80 MG TAB PO STA (09:05)
[2016-09-14] MEDS ORDERED: NITROGLYCERIN SL TABS 0.4 MG TAB SUBLINGUAL PRN (09:05)
[2016-09-14] MEDS: VENLAFAXINE HCL 37.5 MG TAB PO SCH (09:08)
[2016-09-14] MEDS: CHOLECALCIFEROL 1,000 UNIT TAB PO SCH (09:08)
[2016-09-14] MEDS: LACTOBACILLUS ACIDOPH & BULGAR 1 EACH PACKET PO SCH (09:09)
[2016-09-14] MEDS: ASPIRIN 325 MG TAB PO SCH (09:09)
[2016-09-14] MEDS: PANTOPRAZOLE 40 MG TABLET PO SCH (09:09)
[2016-09-14] MEDS ORDERED: SODIUM CHLORIDE 0.9% 1,000 ML IV ONE (11:00)
[2016-09-14] MEDS ORDERED: LIDOCAINE 2% INJ 20 MG/ML SQ ONE (11:17)
[2016-09-14] MEDS ORDERED: MIDAZOLAM 2 MG/2 ML VIAL ONE (11:18)
[2016-09-14] MEDS ORDERED: fentaNYL (PF) 50 MCG/ML 2 ML AMP ONE (11:18)
[2016-09-14] MEDS ORDERED: LIDOCAINE 2% INJ 20 MG/ML (20 ML MDV) ONE (11:20)
[2016-09-14] MEDS ORDERED: fentaNYL (PF) 50 MCG/ML 2 ML AMP IV ONE (11:20)
[2016-09-14] MEDS ORDERED: MIDAZOLAM 2 MG/2 ML VIAL IV ONE (11:20)
[2016-09-14] MEDS ORDERED: LABETALOL 5 MG/ML VIAL MDV IV ONE (11:26)
[2016-09-14] MEDS ORDERED: IOHEXOL 350 MG/ML 125ML BOTTLE INJ ONE (11:30)
[2016-09-14] MEDS ORDERED: RX INFO: IV CONTRAST WAS GIVEN 1 EACH MISC MISCELLANE PRN (11:35)
[2016-09-14] MEDS ORDERED: SODIUM CHLORIDE 0.9% 1,000 ML IV SCH (11:45)
--- NOTE | 2016-09-14 11:55 | P.PCN ---
Date of Procedure: 09/14/16 Preoperative Diagnosis: Chest pain and positive stress test Postoperative Diagnosis: Normal coronary arteries Procedure(s) Performed: Implants: Indications for Procedure: Operative Findings: Description of Procedure: HISTORY: This is a 65-year-old female who was admitted to the hospital with complaints of recurrent epigastric and lower sternal pains. Cardiac enzymes were negative. Patient had a nuclear stress test which was reported as showing possible apical infarct and some reversible ischemia in the inferior segments. Patient is advised to have cardiac catheterization for definitive diagnosis. CONSENT:I have discussed the risks, benefits and alternative therapies for the above-mentioned procedure and for both sedation/analgesia as well as necessary blood product administration, if indicated, as they pertain to this patient. The patient has indicated understanding and acceptance of risks and procedures discussed. PROCEDURE: Patient was brought to the lab in a fasting state. Patient was given some IV sedation. The right groin is infiltrated with lidocaine and right femoral artery was entered using Seldinger technique. A 6-Indonesian catheter was left in place and selective coronary arteriography and left ventriculography was performed. Patient tolerated the procedure well. Femoral angiogram was performed and Angio-Seal was applied for hemostasis. No immediate complications were noted and patient was transferred to [facility] in a stable condition Conscious Sedation: Versed 1 mg Fentanyl 50 g Duration 21 minutes HEMODYNAMICS: . The aortic pressure is about 160/87. Left ankle end-diastolic pressure is about 10-15. There was no gradient across the aortic valve SELECTIVE CORONARY ARTERIOGRAPHY: LEFT MAIN: Normal length and patent THE LEFT ANTERIOR DESCENDING CORONARY ARTERY: . This is a good caliber vessel giving rise to septal and diagonal branches. The LAD and branches are free of occlusive disease THE LEFT CIRCUMFLEX AND IS CORONARY ARTERY: . This is a good caliber vessel. Free of occlusive disease THE RIGHT CORONARY ARTERY: And this is a codominant vessel and free of occlusive disease LEFT VENTRICULOGRAPHY: . Not performed FINAL IMPRESSION: , Normal coronary arteries PLAN: Medical therapy and risk factor modification PROGNOSIS: . Good
[2016-09-14] MEDS: MULTIVITAMINS, THERA 1 EACH TAB PO SCH (12:09)
[2016-09-14 14:08] VITALS: TEMP 98.1
[2016-09-14 16:13] VITALS: BP 120/56; PULSE 77; RESP 16
--- NOTE | 2016-09-14 19:51 | P.DS ---
Providers Date of admission: 09/12/16 17:26 Expected date of discharge: 09/14/16 Attending physician: Karan Espinal Consults: 09/12/16 17:26 Consult Physician Urgent Consulting Provider: [facility] Consult Reason/Comments: Unstable angina Do you want consulting provider notified?: Yes Primary care physician: [facility] Course: FINAL DIAGNOSES: -Chest pain, possible esophageal spasm -History of gastroesophageal reflux disease -Bariatric surgery history -Bilateral mastectomy for breast cancer -Obesity body mass index of 36.6 -Depression not otherwise specified -Nicotine dependence HOSPTIAL COURSE: This is a 65-year-old female who presented with epigastric pain in the lower sternal area over the previous 4 days. Patient did speak to her primary physician and he advised her to report to the emergency department for further evaluation. Cardiology was consulted, dobutamine echo performed, results were indeterminate, patient was scheduled for a cardiac catheterization. Cardiac catheterization was negative for any diffuse vessel disease. Postprocedure, patient was directed to light flat for 6 hours, after which time patient was gotten up ambulated without difficulty. Patient's tolerating her diet, had a bowel movement, and as such is ready for discharge. PHYSICAL EXAM: CARDIOVASCULAR: First and second sounds noted no edema, no chest pain palpitations shortness of breath and sweating noted. RESPIRATORY: Respiratory effort normal, lung sounds clear to auscultation GI: Abdomen soft nontender liver and spleen not palpable MUSKULOSKELETAL: Ambulatory in the hallways with a steady gait DISPOSITION: Discharge home to the care of her family Patient was seen and examined by nurse practitioner Meghan Carr in all elements of the case discussed with attending Dr. Espinal Pertinent Studies: 09/14/2016: Cardiac catheterization: FINAL IMPRESSION: Normal coronary arteries 09/12/2016: Stress test: FINAL IMPRESSION: Rest EKG shows normal sinus rhythm with a normal [place] interval and QRS duration and normal S. No ST segment depression suggestive's of ischemia was noted during Lexiscan injection no dysrhythmias are noted. Patient Condition at Discharge: Stable Plan - Discharge Summary New Discharge Prescriptions: New Nitroglycerin Sl Tabs [Nitrostat] 0.4 mg SUBLINGUAL Q5M PRN #20 tab PRN Reason: Chest Pain Continue Multivitamins, Thera [Multivitamin (formulary)] 1 tab PO DAILY Cholecalciferol [Vitamin D3] 5,000 unit PO DAILY Venlafaxine HCl [Effexor] 37.5 mg PO DAILY Lansoprazole [Prevacid] 30 mg PO DAILY [place]-3 Acid Ethyl Esters [Lovaza] 2 gm PO DAILY L.acidoph,Paracasei, B.lactis [Probiotic] 1 cap PO DAILY D.I.M Supplement Otc 1 tab PO DAILY Discharge Medication List Cholecalciferol [Vitamin D3] 5,000 unit PO DAILY 02/20/15 [History] Lansoprazole [Prevacid] 30 mg PO DAILY 02/20/15 [History] Multivitamins, Thera [Multivitamin (formulary)] 1 tab PO DAILY 02/20/15 [History ] [place]-3 Acid Ethyl Esters [Lovaza] 2 gm PO DAILY 02/20/15 [History] Venlafaxine HCl [Effexor] 37.5 mg PO DAILY 02/20/15 [History] D.I.M Supplement Otc 1 tab PO DAILY 09/12/16 [History] L.acidoph,Paracasei, B.lactis [Probiotic] 1 cap PO DAILY 09/12/16 [History] Nitroglycerin Sl Tabs [Nitrostat] 0.4 mg SUBLINGUAL Q5M PRN #20 tab 09/14/16 [Rx ] Follow up Appointment(s)/Referral(s): dr jania-surgeon [Other] - 1 Week Marko Linton MD [Primary Care Provider] - 3 Days Allan Bustamante MD [STAFF PHYSICIAN] - 1 Week Patient Instructions/Handouts: Left Heart Catheterization (DC), Heart Catheterization (DC) Activity/Diet/Wound Care/Special Instructions: [facility] will call with appointment for a groin check in [address] Bustamante. Diet: Cardiac Activity: Limited until follow up Discharge Disposition: HOME SELF-CARE
--- NOTE | 2016-09-18 14:24 | DS ---
ADDENDUM DATE OF ADMISSION: 09/12/2016 DATE OF DISCHARGE: 09/14/2016 ATTENDING NOTE: This patient is seen and examined by me on 09/14/2016 and discussed this with my nurse practitioner, Ms. Carr. FINAL DIAGNOSES: 1. Chest pain, likely esophageal spasm. 2. Gastroesophageal reflux disease. 3. Obesity, body mass index 36.6. 4. Depression, not otherwise specified. HOSPITAL COURSE: This is a patient who presented with chest pain. Stress test was nonspecific. Cardiac cath showed normal coronaries, had a length talk with the patient. It was felt that patient may have underlying esophageal spasm. Patient told to follow with the bariatric surgeon down at [place], Dr. Fishman. On examination, lungs fair entry. CARDIOVASCULAR: First and second sounds are normal. More details in my FOREIGN EXCHANGE CLERK notes. DISCHARGE PLANNING: More than 35 minutes. SARINA
== END 2016-09-14 17:52 | disposition home or self-care (01) ==
LOC: EC 15:21 → 3OBS 17:26
PROVIDERS: ADMIT Hospitalist; ATTEND Hospitalist
DX: R07.9 Chest pain, unspecified (principal); R10.13 Epigastric pain; M19.90 Unspecified osteoarthritis, unspecified site; F32.9 Major depressive disorder, single episode, unspecified; K21.9 Gastro-esophageal reflux disease without esophagitis; Z68.36 Body mass index [BMI] 36.0-36.9, adult; E66.9 Obesity, unspecified; Z79.899 Other long term (current) drug therapy; Z85.3 Personal history of malignant neoplasm of breast; Z98.84 Bariatric surgery status; F17.200 Nicotine dependence, unspecified, uncomplicated; Z82.49 Family history of ischemic heart disease and other diseases of the circulatory system; Z83.3 Family history of diabetes mellitus; Z90.49 Acquired absence of other specified parts of digestive tract
CPT/HCPCS: 96366 ×2; 96375 ×2; 96376; 96365; 99291; 36415; 94760; 93005; 93017; 93458; 85379; 80061; 80053; 82550 ×2; 82553 ×2; 83690; 83735; 84484 ×2; 85025; 85610; 85730 ×2; 71275; 78452; G0378 ×3; C1760; C1894; C1769; A9500; J2001; J2250; J1250; J1644 ×2; Q9967 ×2; J3010; J2270; J2785

== ENCOUNTER → 2017-10-15 | Outpatient (CLI) | payer BC ==
[2017-10-15 16:54] LABS: T4, Free (Free Thyroxine) 0.82 ng/dL (0.78-2.19)
--- NOTE | 2017-10-16 07:15 | US ---
EXAMINATION TYPE: US thyroid st tissue head/neck DATE OF EXAM: 10/15/2017 COMPARISON: NONE CLINICAL HISTORY: E04.2 nontoxic multinodular goiter. Goiter, history of thyroid nodules GLAND SIZE: Right Lobe: 5.1 x 1.5 x 1.6 cm Overall Parenchyma: heterogenous Left Lobe: 5.1 x 1.8 x 2.5 cm Overall Parenchyma: heterogeneous Isthmus Thickness: 0.4 cm NODULES RIGHT: # of nodules measured on right: 1 1. 1.4 X 1.1 x 1.2 cm isoechoic nodule at the mid pole with well-defined margins; . This nodule is wider than tall and shows intranodular vascularity. Prior size: NO PRIOR LEFT: # of nodules measured on left: 2 1. 2.8 X 1.5 x 2.3 cm echogenic nodule at the mid pole with well-defined margins; . This nodule is wider than tall and shows intranodular vascularity. Prior size: no prior 2. 1.4 X 1.3 x 1.3 cm isoechoic nodule at the lower pole with well-defined margins; . This nodule i s wider than tall and shows intranodular vascularity. Prior size: no prior ISTHMUS: # of nodules measured in the isthmus: 1 1. 1.8 X 0.9 x 1.4 cm mixed nodule at the left pole with well-defined margins; . This nodule is wi apurva than tall and shows intranodular vascularity. Prior size: no prior Bilateral neck scanned, normal appearing lymph nodes bilaterally. Isoechoic area inferior to left thyroid lobe = 1.2 x 0.8 x 1.0cm IMPRESSION: 1. Thyroidomegaly. 2. Nonspecific thyroid nodularity is noted.
== END | disposition home or self-care (01) ==
LOC: RADUSWWP 15:53
PROVIDERS: ATTEND Internal Medicine Endocrinology, Diabetes & Metabolism
DX: E04.2 Nontoxic multinodular goiter (principal); E04.9 Nontoxic goiter, unspecified
CPT/HCPCS: 36415; 76536; 84439; 84443

== ENCOUNTER → 2019-10-14 | Outpatient (CLI) | payer MEDICARE, OTHER ==
--- NOTE | 2019-10-14 15:33 | BD ---
EXAMINATION TYPE: Axial Bone Density DATE OF EXAM: 10/14/2019 COMPARISON: NONE CLINICAL HISTORY: 68-year-old female postmenopausal screening Height: 5 FT 5 1/ 2 IN Weight: 222 FRAX RISK QUESTIONS: Alcohol (3 or more units per day): NO Family History (Parent hip fracture): NO Glucocorticoids (More than 3mos): NO (Ex: prednisone, prednisolone, methylprednisolone, dexamethasone, and hydrocortisone). History of Fracture in Adulthood: YES Secondary Osteoporosis: 1. Type 1 Diabetes: NO 2. Hyperthyroidism: NO 3. Menopause before 45: NO 4. Malnutrition: NO 5. Chronic liver disease: NO Rheumatoid Arthritis: NO Current Tobacco Use: NO RISK FACTORS HISTORY OF: Surgery to Spine/Hip(right/left)/Wrist (right/left): [facility] HIP REPLACEMENTS When: 2017 Family History of Osteoporosis: NO Active: YES Postmenopausal woman: AROUND AGE 52 Lost more than 2 inches in height since high school: YES MEDICATIONS: Thyroid Medications: YES Which medication: LEVOTHYROXINE How Long: ONE YEAR Additional Medications: EFFEXOR ,LEVOTHYROXINE, OMEPRAZOLE Additional History: EXAM MEASUREMENTS: Bone mineral densitometry was performed using the [employer] System. Bone mineral density as measured about the Lumbar spine is: ----- L1-L4(G/cm2): 1.349 T Score Values are as follows: ----- L2: 1.3 ----- L3: 1.1 ----- L4: 1.2 ----- L1-L4: 1.4 BASELINE Bone mineral density about the L Wrist (g/cm2): 0.412 T Score values are as follows: -----Dist. R+U: -3.5 -----Prox. R+U: -3.8 -----Radius total: -4.3 BASELINE IMPRESSION: Osteoporosis (T Score less than -2.5) as indicated by T score values within the left forearm. There is increased fracture risk and therapy is usually indicated based on age. Re-Screen 1-2 years. NOTE: T-SCORE=SD OF THE YOUNG ADULT MEAN.
== END | disposition home or self-care (01) ==
LOC: RADBDWWP 12:43
PROVIDERS: ATTEND Family Medicine
DX: M81.0 Age-related osteoporosis without current pathological fracture (principal)
CPT/HCPCS: 77080

== ENCOUNTER → 2020-09-14 | Outpatient (CLI) | payer MEDICARE ==
[2020-09-14 12:05] LABS: HCT 39.1 % (37.2-46.3); HGB 12.5 g/dL (12.0-15.0); MCH 32.6 pg (27.0-32.0); MCV 102.1 fL (80.0-97.0); Mean Platelet Volume 11.6 fL (9.5-12.2); Platelet Count 199 X 10*3/uL (140-440); RBC 3.83 X 10*6/uL (4.10-5.20); RDW 12.6 % (11.5-14.5); WBC 5.02 X 10*3/uL (4.50-10.00)
[2020-09-14 20:53] LABS: African American GFR (CKD) 88.4 (60.0-200.0); Albumin 4.3 g/dL (3.80-4.90); Albumin/Globulin Ratio 1.95 (1.60-3.17); Anion Gap 9.9 mmol/L (4.00-12.00); BUN/Creat Ratio 27.5 Ratio (12.00-20.00); Calcium 9.3 mg/dL (8.7-10.3); Carbon Dioxide 25.1 mmol/L (21.6-31.8); Chol/HDL Ratio 2.14; Globulin 2.2 g/dL (1.6-3.3); LDL Cholesterol,Calculated 71.4 mg/dL (0.0-131.0); Non-African American GFR(CKD) 76.3 (60.0-200.0); Potassium 4.6 mmol/L (3.5-5.5); Total Bilirubin 0.8 mg/dL (0.3-1.2); Total Protein 6.5 g/dL (6.2-8.2); VLDL Calculation 15.6 mg/dL (5.00-40.00)
[2020-09-14 21:00] LABS: T4, Free (Free Thyroxine) 1.1 ng/dL (0.80-1.80)
== END | disposition home or self-care (01) ==
LOC: LABWHC1 07:19
PROVIDERS: ATTEND Family Medicine
DX: Z00.01 Encounter for general adult medical examination with abnormal findings (principal); E04.1 Nontoxic single thyroid nodule; R53.83 Other fatigue; E66.3 Overweight
CPT/HCPCS: 36415; 80053; 80061; 84439; 84443; 84481; 85027

== ENCOUNTER → 2022-11-21 | Outpatient (CLI) | payer MEDICARE ==
--- NOTE | 2022-11-21 15:34 | BD ---
EXAMINATION TYPE: Axial Bone Density DATE OF EXAM: 11/21/2022 CLINICAL HISTORY: 72 years old Female. ICD-10 CODE: M89.9 disorder of bone Height: 65.25 Weight: 215.4 FRAX RISK QUESTIONS: Alcohol (3 or more units per day): no Family History (Parent hip fracture): no Glucocorticoids (More than 3mos): no History of Fracture in Adulthood: no Secondary Osteoporosis: 1. Type 1 Diabetes: no 2. Hyperthyroidism: no 3. Menopause before 45: no 4. Malnutrition: no 5. Chronic liver disease: no Rheumatoid Arthritis: no Current Tobacco Use: no RISK FACTORS HISTORY OF: Hip Fracture (Right/Left): no Spine Fracture: no History of Wrist Fracture: no Surgery to Spine/Hip(right/left)/Wrist (right/left): Bilateral hips replaced 2017 Family History of Osteoporosis: no Active: no Diet low in dairy products/other sources of calcium: yes Postmenopausal woman: yes Take estrogen and/or progesterone medications: no Lost more than 2 inches in height since high school: yes Frequent falls: no Poor Health: no Hyperparathyroidism: no Adrenal Insufficiency: no MEDICATIONS: Prednisone or other steroids: no Thyroid Medications: Levothyroxine How Long: Past 2 years Osteoporosis Medications: no Additional Medications: Reflux meds, Anxiety Meds, Multi Vit., Vit D, Biotin, Additional History: Breast Ca. 2008 with double mastectomy EXAM MEASUREMENTS: Bone mineral densitometry was performed using the [employer] System. Bone mineral density as measured about the Lumbar spine is: ----- L1-L4(G/cm2): 1.243 T Score Values are as follows: ----- L1: 0.3 ----- L2: -0.8 ----- L3: 1.1 ----- L4: 1.2 ----- L1-L4: 0.5 Z Score Values are as follows: ----- L1: 0.9 ----- L2: -0.3 ----- L3: 17 ----- L4: 1.8 ----- L1-L4: 1.1 Bone mineral density has: decreased -7.9 % since study of: 10/14/2019 Bone mineral density about the L Wrist (g/cm2): 0.364 T Score values are as follows: -----Dist. R+U: -4.0 -----Prox. R+U: -4.6 -----Radius total: -5.1 Z Score values are as follows: -----Dist. R+U: -2.2 -----Prox. R+U: -2.7 -----Radius total: -3.3 Bone mineral density has: decreased -12.5 % since study of: 10/14/2019 FRAX%s: The graph provided illustrates a % chance for a major osteoporotic fx and a % chance for the hips probability for fx in 10 years time. NO FRAX GIVEN IMPRESSION: Osteoporosis (T Score less than -2.5). There is increased fracture risk and therapy is usually indicated based on age. Re-Screen 1-2 years. NOTE: T-SCORE=SD OF THE YOUNG ADULT MEAN.
== END | disposition home or self-care (01) ==
LOC: RADBDWWP 12:30
PROVIDERS: ATTEND Family Medicine
DX: M81.0 Age-related osteoporosis without current pathological fracture (principal); Z78.0 Asymptomatic menopausal state
CPT/HCPCS: 77080

== ENCOUNTER 2023-01-01 07:04 | Day surgery (SDC) | payer MEDICARE ==
[2022-12-30 15:14] VITALS: BMI 33.9
[~2023-01-01 07:04] MED LIST changes: -ACETAMINOPHEN TAB 500 MG TAB PO ONE; -DEXAMETHASONE SOD PHOSPHATE 10 MG/ML 1 ML VIAL IV ONE; -HYDROmorphone 1 MG/ML 1 ML SYRINGE IVP PRN; +LACTATED RINGERS 1,000 ML IV SCH; -MELOXICAM 7.5 MG TAB PO ONE; -ONDANSETRON 4 MG/2 ML VIAL IVP ONE; -TRANEXAMIC ACID 1,000 MG in SODIUM CHLORIDE 0.9% 100 ML IVPB ONE; -ceFAZolin 2 GM in SODIUM CHLORIDE 0.9% 100 ML IVPB ONE
[2023-01-01 07:36] VITALS: TEMP 97.1
[2023-01-01] MEDS ORDERED: PROPOFOL 10 MG/ML 20 ML VIAL IV ONE (08:27)
[2023-01-01] MEDS ORDERED: LIDOCAINE 2% (PF) 20 MG/ML 5 ML VIAL ONE (08:27)
--- NOTE | 2023-01-01 08:51 | P.PCN ---
Date of Procedure: 01/01/23 Procedure(s) Performed: Brief history: Patient is a pleasant 72-year-old white female scheduled for an elective upper endoscopy as well as colonoscopy as a part of evaluation of Iron deficiency anemia. History of gastric bypass surgery with Tracy-en-Y anastomosis several years ago. She denies any abdominal pain, nausea vomiting or rectal bleeding. Procedure performed: Esophagogastroduodenoscopy with biopsy. Colonoscopy Preoperative diagnosis: Iron deficiency anemia Anesthesia: MAC Procedure: After informed consent was obtained from the patient was brought into the endoscopy unit and IV sedation was administered by anesthesia under continuous monitoring. Initially upper endoscopy was done. The Olympus GF 160 video endoscope was inserted inserted into the mouth and esophagus intubated without any difficulty and was gradually advanced into the stomach. The gastric pouch appeared normal. There was evidence of gastric bypass surgery with Tracy-en-Y anastomosis noted. The anastomosis appeared normal. The scope was advanced into the jejunum at 60 cm visualized and appeared normal. Biopsies were done from the jejunum. The scope was gently withdrawn into the gastric ulcer appeared normal. The scope was then withdrawn into the esophagus. The GE junction was located at 37 cm to the incisors. It appeared regular with no erythema erosions or ulcerations. Rest of the esophagus appeared normal. Patient tolerated the procedure well. At this time the patient continued to remain sedation. Initial digital rectal examination was normal. Olympus CF 160 video colonoscope was then inserted into the rectum and gradually advanced to the cecum without any difficulty. Careful examination was performed as the scope was gradually being withdrawn. The prep was fair. 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 Scattered sigmoid diverticulosis.. Retroflexion was performed in the rectum and no lesions were noted. Patient tolerated the procedure well. Impression: 1. Upper endoscopy revealed evidence of Tracy-en-Y gastric bypass surgery with normal anastomosis and no evidence of ulcerations 2. Colonoscopy revealed scattered sigmoid diverticulosis and mild melanosis c andrew. Recommendations: Findings of this examination were discussed with the patient as well as her family. She was advised to follow with the biopsy results. Recommend repeat screening colonoscopy in 10 years.
[2023-01-01 09:18] VITALS: BP 121/74; PULSE 71; RESP 14
== END 2023-01-01 09:45 | disposition home or self-care (01) ==
LOC: ORWHC2ENDO 07:04
PROVIDERS: ATTEND Internal Medicine Gastroenterology
DX: K57.30 Diverticulosis of large intestine without perforation or abscess without bleeding (principal); K63.89 Other specified diseases of intestine; D50.9 Iron deficiency anemia, unspecified; M19.90 Unspecified osteoarthritis, unspecified site; K21.9 Gastro-esophageal reflux disease without esophagitis; Z98.890 Other specified postprocedural states; Z98.84 Bariatric surgery status; Z79.899 Other long term (current) drug therapy
CPT/HCPCS: 88305; 43239; J2704; J2001; G0121; 45378